=== PATIENT | male | born 1975 | race Caucasian/White ===

== ENCOUNTER 2016-08-24 08:00 | Emergency (ER) | payer SELFPAY ==
[~2016-08-24] VITALS: Ht 175.3 cm; Wt 90.7 kg
[~2016-08-24 08:00] MED LIST: AMOX500C2 PO; HYDR-757 PO; SULF1TAB35 PO
--- OUTSIDE RECORDS SUMMARY | 2016-08-24 08:06 | XMS REPORT | Continuity of Care Document ---
Author Author [facility] Organization [facility] Address Unknown Phone Unavailable Allergies Active Description Code Type Severity Reaction Onset Reported/Identified Relationship to Patient Clinical Status Yes CINAMMON CINAMMON Severe ANAPHYLAXIS 11/11/2015 Medications Problems Date Dx Coded Attending Type Code Diagnosis Diagnosed By 11/11/2015 JUAN HENRIQUEZ FERRYBOAT OPERATOR Ot F17.210 NICOTINE DEPENDENCE, CIGARETTES, UNCOMPL 11/11/2015 JUAN HENRIQUEZ FERRYBOAT OPERATOR Ot I99.8 OTHER DISORDER OF CIRCULATORY SYSTEM 11/11/2015 JUAN HENRIQUEZ FERRYBOAT OPERATOR Ot S51.811A LACERATION W/O FOREIGN BODY OF RIGHT FOR 11/11/2015 JUAN HENRIQUEZ FERRYBOAT OPERATOR Ot W45.8XXA OTH FOREIGN BODY OR OBJECT ENTERING THRO 11/11/2015 JUAN HENRIQUEZ FERRYBOAT OPERATOR Ot Y92.[address] IN SINGLE-FAMILY (PRIVATE) [place] 11/11/2015 JUAN HENRIQUEZ FERRYBOAT OPERATOR Ot Y93.H9 ACTVTY,OTH W EXTER PROPERTY LAND MAINT 11/17/2015 JUDI DO, MERLENE F Ot S41.111A LACERATION W/O FOREIGN BODY OF RIGHT UPP 11/17/2015 JUDI DO, MERLENE F Ot X58.XXXA EXPOSURE TO OTHER SPECIFIED FACTORS, INI 11/17/2015 JUDI DO, MERLENE F Ot Y99.8 OTHER EXTERNAL CAUSE STATUS 11/23/2015 JUDI DO, MERLENE F Ot S41.111A LACERATION W/O FOREIGN BODY OF RIGHT UPP 11/23/2015 JUDI DO, MERLENE F Ot X58.XXXA EXPOSURE TO OTHER SPECIFIED FACTORS, INI 11/23/2015 JUDI DO, MERLENE F Ot Y99.8 OTHER EXTERNAL CAUSE STATUS 12/21/2015 JUDI DO, MERLENE F Ot S41.111A LACERATION W/O FOREIGN BODY OF RIGHT UPP 12/21/2015 JUDI DO, MERLENE F Ot X58.XXXA EXPOSURE TO OTHER SPECIFIED FACTORS, INI 12/21/2015 JUDI DO, MERLENE F Ot Y99.8 OTHER EXTERNAL CAUSE STATUS 08/24/2016 MERLENE LAU DO Ot S41.111A LACERATION W/O FOREIGN BODY OF RIGHT UPP 08/24/2016 MERLENE LAU DO Ot X58.XXXA EXPOSURE TO OTHER SPECIFIED FACTORS, INI 08/24/2016 MERLENE LAU DO Ot Y99.8 OTHER EXTERNAL CAUSE STATUS Procedures Results Encounters ACCT No. Visit Date/Time Discharge Status Pt. Type Provider Facility Loc./Unit Complaint [id number] 11/11/2015 20:08:00 2015 21:33:00 DIS Emergency JUAN HENRIQUEZ APRN [facility] ER ARM LAC [id number] 08/24/2016 08:03:00 ACT Emergency ALBINA MONTESINOS MD [facility] ER FALL/RIGHT FOOT INJ [id number] 11/16/2015 19:43:00 ACT Outpatient JUDI KRAUSE MERLENE Audra [facility] LABNPT RT ARM LACERATION
[2016-08-24] MEDS ORDERED: MIRT30TA PO (08:48)
--- NOTE | 2016-08-24 09:17 | Diagnostic Imaging Report ---
EXAM: Three views of the right foot. INDICATION: Right foot pain after tripping over a toy. Joint alignment is satisfactory. IMPRESSION: Unremarkable exam. Dictated by: Dictated on workstation # [id number]
--- NOTE | 2016-08-24 09:18 | Diagnostic Imaging Report ---
EXAM: Three views of the right the ankle. INDICATION: Tripped over toys. FINDINGS: No fracture, dislocation or radiopaque foreign body. Ankle mortise is normal in configuration. IMPRESSION: No fracture seen. Dictated by: Dictated on workstation # [id number]
--- NOTE | 2016-08-24 11:04 | ED Lower Extremity ---
General Chief Complaint: Lower Extremity Stated Complaint: FALL/RIGHT FOOT INJ Nursing Triage Note: TO ROOM 09 WITH COMPLAINTS OF RIGHT FOOT/ANLKE PAIN AFTER TRIPPING OVER A TOY AT 0200 THIS AM. Nursing Sepsis Screen: No Definite Risk Source: patient Exam Limitations: no limitations History of Present Illness Time seen by provider: 10:25 Initial Comments The patient is a 41-year-old white male who reports that last evening he got up to use the bathroom and stepped on a children's toy and rolled his right ankle. He did not ice it. This morning he reports he is unable to walk on it. Onset: just prior to arrival Pain/Injury Location: right ankle Method of Injury: twisted Allergies and Home Medications Allergies Uncoded Allergies: CINAMMON (Allergy, Severe, ANAPHYLAXIS, 11/11/15) Home Medications Mirtazapine 30 Mg Tablet 30 MG PO HS (Reported) Constitutional: see HPI EENTM: no symptoms reported Respiratory: no symptoms reported Cardiovascular: no symptoms reported Gastrointestinal: no symptoms reported Genitourinary: no symptoms reported Musculoskeletal: see HPI joint pain joint swelling Skin: no symptoms reported Psychiatric/Neurological: No Symptoms Reported Past Qtrdnqe-Tluueb-Amiuix Hx Patient Social History Alcohol Use: Occasionally Uses Recreational Drug Use: No Smoking Status: Current Everyday Smoker 2nd Hand Smoke Exposure: Yes Recent Foreign Travel: No Contact w/Someone Who Travel: No Recent Infectious Disease Expo: No Recent Hopitalizations: No Surgeries HX Surgeries: Yes Surgeries: Adenoidectomy, Tonsillectomy Respiratory Hx Respiratory Disorders: No Cardiovascular Hx Cardiac Disorders: No Neurological Hx Neurological Disorders: No Reproductive System Hx Reproductive Disorders: No Genitourinary Hx Genitourinary Disorders: No Gastrointestinal Hx Gastrointestinal Disorders: Yes (HEP C) Gastrointestinal Disorders: Hepatitis Musculoskeletal Hx Musculoskeletal Disorders: No Endocrine Hx Endocrine Disorders: No HEENT HX ENT Disorders: No Cancer Hx Cancer: No Psychosocial Hx Psychiatric Problems: Yes Behavioral Health Disorders: Bipolar, Schizophrenia Integumentary HX Skin/Integumentary Disorder: No Blood Transfusions Hx Blood Disorders: No Physical Exam Vital Signs Vital Sign - Last 12Hours 08/24/16 08:20 Temp 98.0 Pulse 93 Resp 18 B/P 135/106 Pulse Ox 98 Capillary Refill : Less Than 3 Seconds General Appearance: mild distress HEENT: normal ENT inspection Neck: full range of motion Cardiovascular: normal peripheral pulses regular rate, rhythm no edema no gallop no JVD no murmur Respiratory: chest non-tender lungs clear normal breath sounds no respiratory distress no accessory muscle use Comments There is clear swelling over the lateral aspect of the right ankle and early discoloration. There is pain to inversion and dorsiflexion Laceration Repair : Suture Size: 3-0, 4-0 Progress/Results/Core Measures Results/Orders My Orders Orders-ALBINA MONTESINOS MD Foot, Right, 3 View (08/24/16 08:49) Ankle, Right, 3 Views (08/24/16 08:49) Vital Signs/I&O Vital Sign - Last 12Hours 08/24/16 08:20 Temp 98.0 Pulse 93 Resp 18 B/P 135/106 Pulse Ox 98 Blood Pressure Mean: 116 Departure Impression Impression: Primary Impression: right ankle sprain/lateral ligament Disposition: 01 HOME, SELF-CARE Condition: Stable/Unchanged Departure-Patient Inst. Decision time for Depature: 11:03 Referrals: NO,LOCAL PHYSICIAN (PCP/Family) Primary Care Physician Patient Instructions: Ankle Sprain (DC) Add. Discharge Instructions: All discharge instructions reviewed with patient and/or family. Voiced understanding. Elevate, ice for 72 hours, use walking boot. May remove boot for sleep or shower. It can take 3 weeks or more to resolve. ALBINA MONTESINOS MD Aug 24, 2016 11:04
[2016-08-24 11:13] VITALS: BP 146/104
== END 2016-08-24 11:13 | disposition home or self-care (01) ==
LOC: EDUNIT# 08:00 → ER 08:03
DX: S93.401A Sprain of unspecified ligament of right ankle, initial encounter (principal); F17.210 Nicotine dependence, cigarettes, uncomplicated; X58.XXXA Exposure to other specified factors, initial encounter; Y92.009 Unspecified place in unspecified non-institutional (private) residence as the place of occurrence of the external cause; Y99.8 Other external cause status
CPT/HCPCS: 73610; 73630; 99283